=== PATIENT | male | born 1985 | race Caucasian/White ===

== ENCOUNTER → 2018-03-27 07:18 | Outpatient (CLI) | payer OTHER, SELFPAY ==
--- NOTE | 2018-03-27 07:22 | CT_ITS ---
STUDY: CT MAXILLOFACIAL SINUSES REASON FOR EXAM: Male, 32 years old. Nasal polyps. RADIATION DOSAGE (If Supplied By Facility): CTDIvol = ( 29.38 ) mGy, DLP = ( 620.92 ) mGycm TECHNIQUE: The patient was scanned in a multi detector CT scanner. High resolution axial imaging was performed without the administration of intravenous contrast material. Sagittal and coronal images were reconstructed. Individualized dose optimization techniques were used for this CT. COMPARISON: None. FINDINGS: FRONTAL SINUSES: There is complete opacification of the bilateral frontal nasal sinuses. ETHMOIDAL SINUSES: There is near complete opacification of bilateral ethmoidal air cells. MAXILLARY SINUSES: There is significant, lobular peripheral mucosal thickening/edema throughout both maxillary sinuses. SPHENOIDAL SINUSES: There is a small amount of multifocal soft tissue density marginating the sphenoid sinuses. Both ostiomeatal units are occluded in the composite secondary to soft tissue densities are previously discussed. There is rightward deviation of the bony nasal septum. There is mild attenuation of multiple ethmoidal sinus osseous septa. The nasal cavity appears occluded. There is no osseous expansion. The visualized bilateral orbital contents are normal. 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 Complete Occlusion of the bilateral ostiomeatal units. Somewhat globular and polypoid appearing soft tissue densities within the occluded nasal cavity would be consistent with the provided clinical history. No osseous expansion or destruction. Wall thickening and sclerosis of the maxillary sinus osseous margins consistent with chronic disease. Electronically Signed: Ketan Stephenson MD at 8:06 EDT , Service support ,
== END ==
PROVIDERS: Family Provider Family Medicine; PCP Family Medicine; Visit Provider Otolaryngology Otolaryngology/Facial Plastic Surgery
DX: J33.9 Nasal polyp, unspecified (principal)
CPT/HCPCS: 70486

== ENCOUNTER 2018-04-21 12:38 | Day surgery (SDC) | payer OTHER, SELFPAY ==
[2018-04-21 12:53] VITALS: BP 154/83; PULSE 81; RESP 14; TEMP 35.9; O2SAT 95; BMI 27.8
--- NOTE | 2018-04-21 13:52 | OP.PCM_ITS ---
Problem List (1) Chronic pansinusitis Status: Chronic Report of Operation Date of Procedure: 04/21/18 Pre-Operative Diagnosis: chronic pansinusitis Post-Operative Diagnosis: chronic pansinusitis Surgery/Procedure Performed:: 1. endoscopic maxillary antrostomy with tissue removal, right and left. 2. endoscopic frontal sinus exploration with tissue removal, right and left. 3. endoscopic total ethmoidectomy, right and left. 4. extensive excision nasal polyps. 5. stereotactic image guidance navigation Type of Anesthesia:: General Estimated Blood Loss (mL): 5cc Description of Procedure: on the day of the procedure, after appropriate informed consent was obtained, the patient was brought to the operating room and placed in supine position on the operating table. he was placed under general endotracheal anesthesia by the anesthesiologist. the endotracheal tube was secured, the eyes were lubricated. the image-guidance facial pads were placed. the bilateral nasal cavities were decongested with oxymetazoline-soaked pledgets. the zero degree endoscope was used to evaluate the nose. the right and left superior attachment of the middle turbinate and polyps were injected with lidocaine/epinephrine. the left nose was visualized with the endoscope. polyps were removed from the middle meatus using the microdebrider. the acclarent balloon sinuplasty kit was used to probe the frontal sinus lateral to the superior attachment of the middle turbinate. the balloon was advanced after transillumination was seen in the frontal area and inflated to 12atm and removed. contents were evacuated. an antrostomy and uncinectomy was performed with a combination of a shannan elevator and a blakesley. a back biter was used to widen the antrostomy and contents were removed. the ethmoid bulla was entered bluntly with a suction. further polyps were removed from the sphenoethmoidal recess with the microdebrider. a total ethmoidectomy was performed with a curette and an upgoing blakesley. this was taken superiorly to the skull base and laterally to the lamina. a stankewicz maneuver was performed and no laminar defect was seen. a mushroom punch was used to widen the natural sphenoid os and sphenoid contents were removed. endoscopic scizzors were used to remove the anterior/ inferior portion of the middle turbinate. pledgets were placed and hemostasis was achieved. a propel stent was placed in the prior meatus/ethmoid cavity. the right nose was visualized with the endoscope. polyps were removed from the middle meatus using the microdebrider. the acclarent balloon sinuplasty kit was used to probe the frontal sinus lateral to the superior attachment of the middle turbinate. the balloon was advanced after transillumination was seen in the frontal area and inflated to 12atm and removed. contents were evacuated. an antrostomy and uncinectomy was performed with a combination of a shannan elevator and a blakesley. a back biter was used to widen the antrostomy and contents were removed. the ethmoid bulla was entered bluntly with a suction. further polyps were removed from the sphenoethmoidal recess with the microdebrider. a total ethmoidectomy was performed with a curette and an upgoing blakesley. this was taken superiorly to the skull base and laterally to the lamina. a stankewicz maneuver was performed and no laminar defect was seen. a mushroom punch was used to widen the natural sphenoid os and sphenoid contents were removed. endoscopic scizzors were used to remove the anterior/ inferior portion of the middle turbinate. pledgets were placed and hemostasis was achieved. a propel stent was placed in the prior meatus/ethmoid cavity. the patient was awoken from anesthesia and transferred to the PACU in stable condition. Grafts/Implants Used: propel stents - Admit VTE Documentation VTE Mechan Device Prophylaxis: SCD's VTE Pharm Prophylaxis ordered?: No Reason prophylaxis not ordered:: Treatment Not Indicated
--- NOTE | 2018-04-21 13:55 | PCM.DC ---
- Discharge Diagnoses Current Active Problems: Current Active and Chronic Problems Chronic pansinusitis (Chronic) You will use the following diet at home:: No restrictions Discharge Activity: Return to Normal Activity Call your doctor if your incision/area has: Increased Pain/ Swelling Additional Dressing/Incision Instructions:: irrigate nose with nasal saline 5-6 times per day Allergies/Adverse Reactions: Allergies No Known Allergies Allergy (Verified 04/20/18 08:17) Medications to take at Discharge Amoxicillin [Amoxil] mg PO Q12H 04/20/18 Fluticasone/Salmeterol [Advair 250/50 Mcg Diskus] 1 puff INHALATION BID 04/20/18 Mirtazapine [Remeron] 15 mg PO QHS 04/20/18 Montelukast [Singulair] 10 mg PO DAILY 04/20/18 Prednisone 04/20/18 Primary Care Physician: Preston Mccoy MD [Primary Care Provider] - Please Follow Up With: Preston Somers MD When: 1 week
[2018-04-21] MEDS: Clindamycin 900 MG/50 ML BAG 75 MG IV (14:00)
[2018-04-21] MEDS: Oxymetazoline 0.05% 1 SPRAY SPRAY.BTL 15 SPRAY (14:48)
--- NOTE | 2018-04-21 15:00 | ETH_PTH ---
PATIENT: ALICE CARBALLO [place] [facility] [id number] AGE/SX: 32/M ROOM: RE04/21/[address]: Dr. Los Somers MD : 1985 BED: DIS: 04/21/2018 SPEC #: [id number] RECD: 04/22/18 09:41 STATUS: JOANN RENEE #: [id number] GELY: 04/21/18 15:[address]: Los Somers DEPT: SURGICAL PATHOLOGY RECD BY: Dmitry Armstrong ENTERED: 04/22/18 10:21 SP TYPE: ETH TISS OTHR DR: Dr. Preston Mccoy MD Tissues: A - Ethmoid sinus, NOS B - Ethmoid sinus, NOS Procedures: Decalcification bone/plaque Surgery Specimen Level IV HEADER OPERATION: Functional endoscopic sinus surgery PRE-OP DIAGNOSIS: Allergic rhinitis, chronic pansinusitis TISSUE SUBMITTED: A ? Right nasal sinus tissue, B ? Left nasal sinus tissue MICROSCOPIC DIAGNOSIS A. Right nasal sinus tissue: Fragments of respiratory mucosa with chronic inflammation and bone. B. Left nasal sinus tissue: Fragments of respiratory mucosa with chronic inflammation and bone. TATY:tucker 04/28/18 MICROSCOPIC DESCRIPTION Slides are reviewed. GROSS DESCRIPTION A - Received in fixative is one container labeled with the patient's name and designated right nasal sinus tissue. The specimen consists of multiple irregular fragments of glistening pink-ornelas soft tissue that in aggregate measure 6 x 3.5 x 0.2 cm. Several of the fragments contain adherent bony tissue. The entire specimen is submitted in three cassettes after decalcification. B - Received in fixative is one container labeled with the patient's name and designated left nasal sinus tissue. The specimen consists of multiple irregular fragments of glistening pink-ornelas soft tissue that in aggregate measure 7 x 3 x 0.2 cm. Several of the fragments contain adherent bony tissue. The entire specimen is submitted in three cassettes after decalcification. / AM:tucker 04/22/18 TC:3 CPT: 88540 x2, 10386 x2
[2018-04-21] MEDS: Ondansetron 4 MG/2 ML Vial (15:25)
[2018-04-21 15:35] VITALS: BP 145/95; BP 154/83; PULSE 91; RESP 18; TEMP 36.2; O2SAT 95
[2018-04-21 15:45] VITALS: BP 144/97; BP 154/83; PULSE 93; RESP 18; O2SAT 93
[2018-04-21 16:00] VITALS: BP 143/93; BP 154/83; PULSE 81; RESP 18; TEMP 36.5; O2SAT 96
[2018-04-21 16:30] VITALS: BP 154/83
[2018-04-21] MEDS: HYDROcodone Bitartrate/Apap 5/325 Tablet PO (16:42)
== END 2018-04-21 16:35 | disposition home or self-care (01) ==
LOC: SDC 12:39 → AC 12:40
PROVIDERS: Family Provider Family Medicine; PCP Family Medicine; Visit Provider Otolaryngology
PROC: (CPT 31237; principal; 2018-04-21 14:30)
DX: J32.4 Chronic pansinusitis (principal); J30.1 Allergic rhinitis due to pollen; J30.81 Allergic rhinitis due to animal (cat) (dog) hair and dander; K21.9 Gastro-esophageal reflux disease without esophagitis; Z79.2 Long term (current) use of antibiotics; Z79.51 Long term (current) use of inhaled steroids; Z79.52 Long term (current) use of systemic steroids; Z87.891 Personal history of nicotine dependence; Z79.899 Other long term (current) drug therapy
CPT/HCPCS: 31237; 31255; 31267; 31276; 88305; 88311; J7120; J2405

== ENCOUNTER 2019-11-18 23:34 | Emergency (ER) | payer OTHER, SELFPAY ==
[2019-11-18 23:35] VITALS: BP 162/79; PULSE 112; RESP 18; TEMP 36.7; O2SAT 96; BMI 22.7
--- NOTE | 2019-11-19 00:24 | ED.DCSUM_ITS ---
- ER Visit Summary Date of Service: 11/19/19 Chief Complaint: [Drug overdose] History of Present Illness: The patient is a 34 M [presents to the emergency department via EMS. EMS was called by patient's vleqxo-do-cyw who was at their home tonight. The patient's had surgery recently. Patient apparently displayed some odd behavior this evening and was not acting normally. Patient apparently denied to the family that he had done anything although he does have history of opiate abuse and addiction. Patient currently at [facility] and actually had a group session today. He admitted to the police officers that he did use heroin tonight. Patient admits to me that he snorted heroin tonight. He denies feeling suicidal or homicidal. Patient had no intentional overdose. He did not require any Narcan. Patient otherwise has no complaints. He has a primary care physician appointment coming up December 17 and also an appointment with psychiatrist on 09 December.] He denies alcohol use tonight. Physical Examination: [HEENT-PERRLA, EOMI. Cranial nerves II through XII grossly intact. TMs clear. Mucous membranes moist. No adenopathy. Cardiovascular-regular rate and rhythm without murmur or ectopy Lungs-clear to auscultation, chest wall stable without crepitus or subcu em physema Abdomen-normoactive bowel sounds, soft, nontender, no rebound or rigidity, no peritoneal signs. Extremities-intact ?4, normal range of motion, normal pulses, atraumatic] Test Results: [None indicated] Emergency Department Course and Treatment: [I discussed with patient options of having him speak with somebody from the counseling center however he does not feel like that is necessary. Patient's vkytyg-zz-xqv presented to the emergency department as well and he did admit to her that he did use heroin tonight. Yihcop-ov-ddz is a nurse and she found out recently that he was using prescription pain pills but did not know that he was using heroin. At this point I do not feel any further treatment or observation periods indicated. Patient is comfortable going home.] Treatment Plan: [Follow-up with primary care physician and counseling center. Follow-up with [facility]. Patient advised to discontinue drug use.] Disposition: [Discharged home in stable condition] Impression: [Illicit drug use/opiates] This note was generated with [employer] software. It may contain incorrect words, spelling, and punctuation that were not noted in review of the chart prior to signing ED Disposition - Plan for ED Patient: Referrals: Preston Mccoy MD [Primary Care Provider] -
--- NOTE | 2019-11-19 00:31 | ED.DEP ---
ED Disposition - Plan for ED Patient: Instructions: Drug Abuse, Opiate Abuse Referrals: Preston Mccoy MD [Primary Care Provider] - 5-7 Days
--- NOTE | 2019-11-19 00:54 | ED.RN ---
PATIENT REPEATLY ASKED IF HER OVERDOSED A SI ATTEMPT. PATIENT DENIES ANY SI OR HI THOUGHTS, HE TOOK TOO MUCH MEDICATION AN HERION TONIGHT TO GET HIGH. FAMILY AGREES. FAMILY AND PATIENT MADE AWARE IF THINGS CHANGE TO PLEASE SEEK MEDICAL TREATMENT
[2019-11-19 00:55] VITALS: PULSE 86; RESP 16; O2SAT 98
== END 2019-11-19 00:56 | disposition home or self-care (01) ==
PROVIDERS: Emergency Provider Emergency Medicine; Family Provider Family Medicine; PCP Family Medicine
DX: F11.20 Opioid dependence, uncomplicated (principal)
CPT/HCPCS: 99284

== ENCOUNTER 2019-12-14 18:58 | Emergency (ER) | payer OTHER, SELFPAY ==
[2019-12-14 18:59] VITALS: BP 156/112; PULSE 98; RESP 16; TEMP 36.8; O2SAT 95; BMI 23.3
--- NOTE | 2019-12-14 19:30 | ED.VISSUMM ---
- ER Visit Summary Date of Service: 12/14/19 Chief Complaint: Pain and paresthesias of the right upper extremity History of Present Illness: The patient is a 34 M who presents with pain and paresthesias of his right upper extremity that began today. Patient states the pain starts in his right scapular area and radiates down his right upper extremity to his hand and fingers. Patient admits to some numbness and tingling in his right upper extremity. Patient describes the pain as burning. Patient states nothing makes it better and nothing makes it worse. Patient denies any trauma or injury. Patient also admits to some mild discoloration of his right upper extremity. Physical Examination: Vital signs are stable. Patient is afebrile. Patient is in no acute distress. Oral mucosa is pink and moist. Neck is supple. Trachea is midline. There is no JVD or lymphadenopathy. There is some mild right cervical paraspinal tenderness. There is also tenderness over the right trapezius and parascapular muscles. Heart was regular rate and rhythm. Lungs are clear and equal bilaterally. Abdomen is soft and nontender. Cranial nerves II through XII are intact. Strength is 5/5 bilaterally upper extremities. There are no sensory deficits noted. Radial pulses are equal bilaterally. There is no pulse deficit when the arm is abducted and externally rotated however, the patient states the paresthesias get worse with this movement. Emergency Department Course and Treatment: Patient was advised that this may be thoracic outlet syndrome causing some pinching on his nerves to his upper extremity. I do not feel imaging is warranted at this time. Patient was given a prescription for Naprosyn. Patient was instructed to follow-up with his primary care physician in 3 to 5 days. Patient understood and was agreeable with the plan. All questions were answered. Disposition: Discharge home Impression: Right upper extremity paresthesias This note was generated with [employer] dictation software. It may contain incorrect words, spelling, and punctuation that were not noted in review of the chart prior to signing ED Disposition - Plan for ED Patient: Disposition: Home or Assisted Living Diagnosis: Paresthesia of right upper extremity Instructions: Paraesthesias Prescriptions: Naproxen [Naprosyn] 500 mg PO BID PRN #20 tab Prescription Printed Referrals: Preston Mccoy MD [Primary Care Provider] - 5-7 Days
--- NOTE | 2019-12-14 20:11 | ED.RN ---
THIS RN WENT TO D/C PT. PER PT , I DON'T WANT TO LEAVE WITHOUT A BLOOD TEST FOR BLOOD CLOT, I DO NOT FEEL COMFORTABLE TAKING HIM HOME. PLEASE TELL THE DOCTOR TO DO SOMETHING. THIS RN SPOKE WITH DR. WELLINGTON AND INFORMED HIM OF PT REQUEST. PT AWAITING LAB RESULTS AT THIS TIME.
[2019-12-14 20:35] LABS: D-Dimer Quantitative (DVT/PE) 0.64 FEU/ug/m (0.27-0.49)
[2019-12-14 21:09] VITALS: BP 146/107; PULSE 80; RESP 16; O2SAT 98
== END 2019-12-14 21:10 | disposition home or self-care (01) ==
PROVIDERS: Emergency Provider Emergency Medicine; Family Provider Family Medicine; PCP Family Medicine
DX: R20.2 Paresthesia of skin (principal); J45.909 Unspecified asthma, uncomplicated; F17.220 Nicotine dependence, chewing tobacco, uncomplicated; Z79.51 Long term (current) use of inhaled steroids
CPT/HCPCS: 36415; 85379; 99282

== ENCOUNTER → 2019-12-15 14:00 | Outpatient (CLI) | payer OTHER, SELFPAY ==
[2019-12-14 18:59] VITALS: BMI 23.3
--- NOTE | 2019-12-15 14:07 | VDUE_ITS ---
Reason For Study: elevated D-dimer (0.64) Right Proximal Left Proximal Right jugular vein is spontaneous, widely Left subclavian vein is spontaneous, widely patent, phasic, with no intraluminal patent, phasic, with no intraluminal echogenicity noted. echogenicity noted. Right subclavian vein is compressible and patent with roulleaux flow noted in vessel. Right Lower Arm Right radial vein is compressible. Right ulnar vein is compressible. Right Arm Right axillary vein is spontaneous, patent, phasic, competent, compressible and demonstrates augmentation. Right brachial vein is compressible. Right cephalic vein is compressible. Right basilic vein is compressible. Interpretation Summary Deep veins of the right upper extremity are patent and compressible segmentally. There is no evidence of deep vein thrombosis. The superficial veins in the right upper extremity, the basilic and cephalic veins, are patent and compressible. There is no evidence of right upper extremity superficial thrombophlebitis involving the veins imaged. Rouleaux flow is noted in the right subclavian vein. Ordering Physician: Beny Staley Referring Physician: Los Mccoy Performed By: Benita Sampson, [place], RVT ?
== END ==
PROVIDERS: Family Provider Family Medicine; PCP Family Medicine; Referring Provider Emergency Medicine; Visit Provider Emergency Medicine
DX: R79.89 Other specified abnormal findings of blood chemistry (principal)
CPT/HCPCS: 93971

== ENCOUNTER 2019-12-17 07:23 | Emergency (ER) | payer OTHER, SELFPAY ==
[2019-12-17 07:24] VITALS: BP 147/85; PULSE 107; RESP 17; TEMP 36.6; O2SAT 98; BMI 24.0
--- NOTE | 2019-12-17 07:58 | RAD_ITS ---
STUDY: X-RAY - CERVICAL SPINE REASON FOR EXAM: Male, 34 years old. Patient reports increased pain and edema in right arm and hand TECHNIQUE: 6 view(s) of the cervical spine were obtained including flexion and extension views and oblique views.. COMPARISON: None FINDINGS: Normal anterior atlantoaxial articulation. Normal odontoid process. There is straightening of the normal cervical lordosis. Mild degree of the anterior spondylosis and disc space narrowing at the C5-C6 level. Normal visualized intervertebral neuroforamina. The soft tissue structures are unremarkable. RAD/Cerv Spine Obl/Flex/Ext Comp IMPRESSION: Mild degree of disc space narrowing and spondylosis at the C5-C6 level. Electronically Signed: Paulo Grigsby, at 8:56 EST , Service support ,
--- NOTE | 2019-12-17 07:58 | RAD_ITS ---
STUDY: X-RAY CHEST REASON FOR EXAM: Male, 34 years old. Patient reports increased pain and edema in right arm and hand TECHNIQUE: PA and lateral views of the chest. COMPARISON: None. FINDINGS: The lungs are clear and expanded. Calcified granulomatous disease. There is no demonstrated pleural abnormality. Normal size heart. Normal mediastinum and sukhdev. Normal visualized pulmonary arteries. Normal visualized aortic arch and descending thoracic aorta. There are mild degenerative changes of the visualized thoracic spine. Normal visualized ribs, clavicles, and shoulders. There is no demonstrated abnormality of the visualized soft tissue structures of the upper abdomen. RAD/Chest PA and Lateral IMPRESSION: No acute abnormality is seen. Electronically Signed: Paulo Grigsby, at 8:55 EST , Service support ,
--- NOTE | 2019-12-17 08:02 | ED.DCSUM_ITS ---
- ER Visit Summary Date of Service: 12/17/19 Chief Complaint: Right arm pain and swelling History of Present Illness: The patient is a 34 M who presents with worsening right arm pain and swelling. Patient states this began 5 days ago. Patient was seen here 3 days ago and elevated d-dimer at that time. Patient followed up with an outpatient venous duplex of his right upper extremity which did not show any DVT. Patient states that he was told that he had slow blood flow in his right arm. Patient admits to some paresthesias in his entire right upper extremity. Patient denies any weakness. Patient describes the pain as dull, aching, and burning. Patient states the pain is worse when he abducts and externally rotates his right shoulder. Patient states he has pain in his right scapular area as well. Physical Examination: Vital signs are stable. Patient is afebrile. Patient is in no acute distress. Oral mucosa is pink and moist. Neck is supple. Trachea is midline. There is no JVD. Heart was regular rate and rhythm. Lungs are clear and equal bilaterally. Radial pulses are equal bilaterally. Capillary refill is less than 2 seconds in all digits. There is some edema of the right upper extremity. Sensation was intact to light touch in the radial, median, and ulnar areas. Patient still had a palpable radial pulse with abduction and external rotation of the right shoulder. There is also some mild tenderness over the right cervical paraspinal area and trapezius muscle area. Test Results: CBC and basic metabolic profile were obtained and were within normal limits. Total CK was normal at 48. PA lateral chest x-ray was obtained. There is no acute cardiopulmonary process. This was interpreted by the radiologist and myself. X-rays of the cervical spine with obliques and flexion- extension views were obtained. There is some mild disc space narrowing at C5-C6 but there is no neuroforaminal stenosis. CTA of the chest was obtained for possible thoracic outlet syndrome. There is no compression of the subclavian artery or vein. There is no pulmonary embolism. Emergency Department Course and Treatment: Patient was instructed to continue using ice to his right shoulder area. Patient was instructed to continue using his Naprosyn. Patient was given a prescription for Flexeril to take at bedtime. Patient was instructed to follow-up with his primary care physician in 3 to 5 d ays for further evaluation. Patient understood and was agreeable with the plan. All questions were answered. Disposition: Discharge home Impression: 1. Right arm paresthesias 2. Probable thoracic outlet syndrome This note was generated with [employer] dictation software. It may contain incorrect words, spelling, and punctuation that were not noted in review of the chart prior to signing ED Disposition - Plan for ED Patient: Disposition: Home or Assisted Living Diagnosis: Thoracic outlet syndrome Instructions: Paraesthesias Referrals: Preston Mccoy MD [Primary Care Provider] - 3-5 Days
[2019-12-17 08:19] LABS: Absolute Lymphocyte Count 2.01 X10^3/uL (0.83-4.51); Absolute Neutrophil Count 7.1 X10^3/uL (2.0-7.7); Basophil# 0.06 X10^3/uL; Basophil% 0.6 % (0-1); Eosinophil# 0.36 X10^3/uL; Eosinophils% 3.3 % (0-5); Hematocrit 45.5 % (40-54); Hemoglobin 14.9 g/dL (13.0-16.5); Lymphocyte # 2.01 X10^3/ul (4.0); Lymphocyte % 18.4 % (19-41); Mean Corp Hgb Conc 32.7 g/dL (32-36); Mean Corpuscular Hgb 30.2 pg (27.0-32.0); Mean Corpuscular Volume 92.3 fL (80-94); Mean Platelet Vol. 9.1 fl (6.2-12.0); Monocyte# 1.24 X10^3/uL; Monocyte% 11.4 % (0-10); NRBC Flagged by Analyzer 0 % (0-5); Neutrophil # 7.14 X10^3/uL (2.7-7.7); Neutrophil % 65.5 % (47-70); Platelet Count 287 K/mm3 (150-450); RBC Distribution Width CV 12.3 % (11.6-14.6); RBC Distribution Width SD 41.8 fl (35.1-43.9); Red Blood Count 4.93 M/mm3 (4.6-6.2); White Blood Count 10.9 K/mm3 (4.4-11.0)
[2019-12-17] MEDS: Ketorolac 30 MG/ML Syringe IV (08:25)
[2019-12-17 08:42] LABS: Anion Gap 0 (5-15); BUN 15 mg/dL (7-18); CPK Total, Creatine Kinase 48 U/L (39-308); Calcium,Total 8.7 mg/dL (8.5-10.1); Chloride 108 mmol/L (98-107); Creatinine, Serum 0.88 mg/dL (0.70-1.30); EST Glomerular Filtration Rate 104 mL/min (>60); Est Glom Filt Rate - Afr Amer 126 mL/min (>60); Estimated Creatinine Clearance 110.58 ml/min; Glucose 83 mg/dL (74-106); Potassium 4.3 mmol/L (3.5-5.1); Sodium Level 140 mmol/L (136-145)
--- NOTE | 2019-12-17 09:15 | CT_ITS ---
STUDY: CTA CHEST REASON FOR EXAM: Male, 34 years old. Right arm pain and edema x 5 days, ? Thoracic outlet syndrome, negative for DVT. Hx asthma. Thoracic outlet syndrome protocol. RADIATION DOSAGE (If Supplied By Facility): CTDIvol = ( 8.10 ) mGy, DLP = ( 655.70 ) mGycm TECHNIQUE: The examination was performed with the intravenous administration of 150mL Isovue 300 (total injected). Post-processing of the angiographic images was performed, with multiplanar reformation and 3D reconstruction. Individualized dose optimization techniques were used for this CT. COMPARISON: None. FINDINGS: Normal enhancement of the main pulmonary artery and right and left pulmonary arteries. Normal enhancement of the bilateral peripheral pulmonary arteries. There is no demonstrated pulmonary embolism. Normal thoracic aorta and visualized great vessels. There is no demonstrated aortic dissection. Normal heart and pericardium. Normal mediastinum. Normal hilar regions. Normal visualized trachea and bronchi. The lungs are well expanded. Normal pulmonary parenchyma. Normal pleura. Normal chest wall structures. Normal osseous structures. Normal visualized upper abdomen. CT/CTA Chest W/WO Contrast IMPRESSION: Normal CTA chest examination, without a demonstrated pulmonary embolism or arterial dissection. Electronically Signed: Paulo Grigsby, at 10:06 EST , Service support ,
[2019-12-17 11:49] VITALS: BP 145/81; PULSE 81; RESP 12; O2SAT 97
== END 2019-12-17 11:51 | disposition home or self-care (01) ==
PROVIDERS: Emergency Provider Emergency Medicine; PCP Family Medicine
DX: R20.2 Paresthesia of skin (principal); K21.9 Gastro-esophageal reflux disease without esophagitis; Z79.899 Other long term (current) drug therapy
CPT/HCPCS: 71046; 71275; 72052; 80048; 82550; 85025; 96374; 99283; Q9967; A4216

== ENCOUNTER 2019-12-17 16:01 | Emergency (ER) | payer OTHER, SELFPAY ==
[2019-12-17 07:24] VITALS: BMI 24.0
[2019-12-17 16:02] VITALS: BP 148/88; PULSE 106; RESP 16; TEMP 36.3; O2SAT 98; BMI 23.9
[2019-12-17 17:01] LABS: International Normalized Ratio 1.1; Prothrombin Time (Protime)PT. 13.5 SECONDS (11.7-14.9)
[2019-12-17 17:02] LABS: Partial Thromboplast Time 26.9 Seconds (24.1-36.2)
--- NOTE | 2019-12-17 18:16 | ED.DEP ---
ED Disposition - Plan for ED Patient: Instructions: Understanding Deep Vein Thrombosis Prescriptions: Apixaban [Eliquis] 5 mg PO BID #74 tablet Referrals: Preston Mccoy MD [Primary Care Provider] - Randy Arce MD [STAFF PHYSICIAN] - Enzo Toscano MD [NON-STAFF] -
--- NOTE | 2019-12-17 18:25 | ED.VISSUMM ---
- ER Visit Summary Date of Service: 12/17/19 Chief Complaint: Right upper extremity blood clot History of Present Illness: The patient is a 34 M presenting with swelling to his right arm. This has been ongoing for the past 4 days. He was seen in the ED on Friday night and had an outpatient ultrasound ordered. This was performed on Friday and showed no evidence of DVT. Patient continued to complain of increasing pain and swelling in the right arm. He returned to the ED this morning and had a work-up including blood work and CTA of his chest which was negative. He followed up with his primary care physician today after the ED visit. Another ultrasound was ordered and performed today. This ultrasound of his right upper extremity showed occlusive or near occlusive thrombus within the right subclavian, axillary and basilic veins. Brachial and cephalic veins are patent. Bilateral jugular veins are patent. Regional soft tissues are unremarkable. Patient denies chest pain or shortness of breath. Denies weakness. He has a history of heroin abuse. Denies history of IV drug use. He has been sober for 30 days. Physical Examination: Vitals are stable. Patient is afebrile. Alert no acute distress. HEENT exam is unremarkable. Neck is supple. Lungs are clear and equal bilaterally. Heart is regular rate and rhythm. Abdomen is soft nontender nondistended. Extremities right upper extremity swelling with tenderness right arm. Normal radial pulses. Cap refill less than 2 seconds. Normal sensation. Skin is warm and dry. No focal neurologic deficit. Normal strength. Remainder of exam is unremarkable. Emergency Department Course and Treatment: Blood work from earlier today was unremarkable. INR was 1.1. Ultrasound was reviewed with Dr. Arce, vascular surgery and Dr. Toscano, hematology. Recommend Eliquis and outpatient follow-up. Patient will follow-up with Dr. Arce and Dr. Toscano. He is given Eliquis and prescription for Eliquis. He is advised return to ED for worsening complaints. Disposition: Discharge home Impression: Right upper extremity DVT This note was generated with [employer] dictation software. It may contain incorrect words, spelling, and punctuation that were not noted in review of the chart prior to signing ED Disposition - Plan for ED Patient: Disposition: Home or Assisted Living Instructions: Understanding Deep Vein Thrombosis Prescriptions: Apixaban [Eliquis] 5 mg PO BID #74 tab Prescription Printed Referrals: Randy Arce MD [STAFF PHYSICIAN] - Preston Mccoy MD [Primary Care Provider] - Enzo Toscano MD [NON-STAFF] -
[2019-12-17] MEDS: APIXABAN 5 MG TABLET 10 MG PO (18:45)
== END 2019-12-17 18:46 | disposition home or self-care (01) ==
PROVIDERS: Emergency Provider Emergency Medicine; PCP Family Medicine
DX: I82.621 Acute embolism and thrombosis of deep veins of right upper extremity (principal)
CPT/HCPCS: 85610; 85730; 99284; A4216

== ENCOUNTER 2020-01-09 01:05 | Emergency (ER) | payer OTHER, SELFPAY ==
[2020-01-09 01:06] VITALS: BP 157/101; PULSE 119; RESP 10; TEMP 37.1; O2SAT 84; BMI 26.2
[2020-01-09 01:08] VITALS: O2SAT 99
--- NOTE | 2020-01-09 01:21 | CT_ITS ---
STUDY: CTA CHEST REASON FOR EXAM: Male, 34 years old. FALL WHILE IN SHOWER, FOUND WITH ALTERED LOC PER , NOT ACTING RIGHT, C/O NEWMAN, WEAKNESS, CP, THORACIC OUTLET SYNDROME SX 1.5 WEEKS AGO, DYSPNEA, COUGH RADIATION DOSAGE (If Supplied By Facility): CTDIvol = ( 13.86 ) mGy, DLP = ( 467.43 ) mGycm TECHNIQUE: The examination was performed with the intravenous administration of IV 100mL Isovue-370. Post-processing of the angiographic images was performed, with multiplanar reformation and 3D reconstruction. Individualized dose optimization techniques were used for this CT. COMPARISON: 12/17/2019 FINDINGS: Normal enhancement of the main pulmonary artery and right and left pulmonary arteries. Normal enhancement of the bilateral peripheral pulmonary arteries. There is no demonstrated pulmonary embolism. Normal thoracic aorta and visualized great vessels. There is no demonstrated aortic dissection. Normal heart and pericardium. Normal mediastinum. Normal hilar regions. Normal visualized trachea and bronchi. Evolving scattered areas of bilateral alveolitis. Small right pleural effusion. Normal chest wall structures. Normal osseous structures. Normal visualized upper abdomen. CT/CTA Chest W/WO Contrast IMPRESSION: No pulmonary embolus or aortic dissection. Evolving scattered areas of bilateral alveolitis. Small right pleural effusion. Electronically Signed: Vern Faye MD at 2:25 EST Tel , Service support ,
--- NOTE | 2020-01-09 01:23 | CT_ITS ---
STUDY: CT BRAIN WITHOUT CONTRAST REASON FOR EXAM: Male, 34 years old patient found with altered level of consciousness after falling in the shower. Patient has headache and weakness. Patient had thoracic outlet syndrome surgery one and one-half weeks ago. FALL WHILE IN SHOWER, FOUND WITH ALTERED LOC PER , NOT ACTING RIGHT, C/O NEWMAN, WEAKNESS, CP, THORACIC OUTLET SYNDROME SX 1.5 WEEKS AGO RADIATION DOSAGE (If Supplied By Facility): CTDIvol = ( 44.99 ) mGy, DLP = ( 829.85 ) mGycm TECHNIQUE: Transaxial CT imaging of the brain was performed without administration of intravenous contrast material. Multiplanar reformations are submitted for interpretation. Individualized dose optimization techniques were used for this CT. COMPARISON: No relevant priors. FINDINGS: Normal soft tissue structures. Normal calvarium. Normal size ventricles and extra-axial spaces for the patient''s age. Normal white matter tracts of the cerebral hemispheres. Normal basal ganglia and thalami. Normal brainstem. Normal cerebellum. There is no intracranial hemorrhage. There are no findings of an acute ischemic infarction. Patient has had extensive surgery including resection of the ostiomeatal complexes and partial ethmoidectomies. There is residual mucosal thickening within the maxillary sinuses. CT/Brain/Head without Contrast IMPRESSION: No CT evidence of acute intracranial hemorrhage. Electronically Signed: Hortencia Cruz MD at 2:46 EST , Service support ,
--- NOTE | 2020-01-09 01:23 | ED.VISSUMM ---
- ER Visit Summary Date of Service: 01/09/20 Chief Complaint: Fall and altered mental status History of Present Illness: The patient is a 34 M who presents with altered mental status and fall that occurred tonight. Patient states he went and took a shower tonight. Patient states he fell while he was in the shower. found him with an altered mental status. Patient denies any syncopal episode. Patient did have a recent surgery for thoracic outlet syndrome. Patient states he has pain over the incision and into his back. Patient also admits to some pain in his chest. Patient also admits to headache and weakness. Physical Examination: Vital signs are stable except for mildly elevated blood pressure of 157/101, a mild tachycardia of 119, and a respiratory rate of 10. Pulse oximeter is 99% on 2 L nasal cannula. Pupils are equal, round, and reactive to light bilaterally. Extraocular muscles are intact. Oral mucosa is pink and somewhat dry. Neck is supple. Trachea is midline. There is no JVD. Heart was regular and tachycardic. Lungs were diminished bilaterally but slightly worse on the right. There is adequate respiratory effort. Abdomen is soft. Bowel sounds are normal. There is no tenderness. Cranial nerves II through XII are intact. There are no focal motor or sensory deficits noted. Patient does fall asleep easily on examination but awakens to verbal stimuli. Extremities are intact. There is no calf tenderness or edema. Test Results: CBC shows a mild leukocytosis of 12.9 and mild thrombocytosis of 500. Comprehensive metabolic profile was within normal limits. CT scan of the brain was obtained and was negative. CTA of the chest was obtained. There is no evidence of pulmonary embolism or aortic dissection. Urinalysis was within normal limits. Urine tox screen was positive for opiates and benzodiazepines. Emergency Department Course and Treatment: Patient was given IV fluids. Patient was more awake and alert on reevaluation. Patient was instructed to drink plenty of fluids. Patient was instructed to follow-up with his primary care physician and surgeon in 3 to 5 days. Patient and family understood and were agreeable with the plan. All questions were answered. Disposition: Discharge home Impression: 1. Syncope 2. Dehydration This note was generated with [employer] software. It may contain incorrect words, spelling, and punctuation that were not noted in review of the chart prior to signing ED Disposition - Plan for ED Patient: Disposition: Home or Assisted Living Diagnosis: Syncope, Dehydration Instructions: DEHYDRATION (6y-Adult), SYNCOPE, Unk Cause Referrals: Preston Mccoy MD [Primary Care Provider] - 3-5 Days
[2020-01-09] MEDS: 0.9% Normal Saline 1,000 ML 1000 ML IV (01:32)
[2020-01-09 01:41] LABS: Absolute Lymphocyte Count 3.24 X10^3/uL (0.83-4.51); Absolute Neutrophil Count 7.6 X10^3/uL (2.0-7.7); Basophil# 0.06 X10^3/uL; Basophil% 0.5 % (0-1); Eosinophil# 0.57 X10^3/uL; Eosinophils% 4.4 % (0-5); Hematocrit 41.1 % (40-54); Hemoglobin 13.7 g/dL (13.0-16.5); Lymphocyte # 3.24 X10^3/ul (4.0); Lymphocyte % 25.2 % (19-41); Mean Corp Hgb Conc 33.3 g/dL (32-36); Mean Corpuscular Hgb 30.5 pg (27.0-32.0); Mean Corpuscular Volume 91.5 fL (80-94); Mean Platelet Vol. 8.8 fl (6.2-12.0); Monocyte# 1.24 X10^3/uL; Monocyte% 9.6 % (0-10); NRBC Flagged by Analyzer 0 % (0-5); Neutrophil # 7.56 X10^3/uL (2.7-7.7); Neutrophil % 58.7 % (47-70); Platelet Count 500 K/mm3 (150-450); Red Blood Count 4.49 M/mm3 (4.6-6.2); White Blood Count 12.9 K/mm3 (4.4-11.0)
[2020-01-09 01:57] LABS: ALB/GLOB Ratio 0.9 RATIO (0.9-2.4); AST(SGOT) 27 U/L (15-37); Alanine Aminotransfer ALT/SGPT 56 U/L (16-61); Albumin, Serum 3.7 g/dL (3.2-5.0); Alkaline Phosphatase 77 U/L (45-117); Anion Gap 3 (5-15); BUN 16 mg/dL (7-18); BUN/Creat Ratio 14.8 RATIO (10-20); Chloride 108 mmol/L (98-107); Creatinine, Serum 1.08 mg/dL (0.70-1.30); EST Glomerular Filtration Rate 83 mL/min (>60); Est Glom Filt Rate - Afr Amer 100 mL/min (>60); Estimated Creatinine Clearance 90.11 ml/min; Globulin 3.9 g/dL (2.2-4.2); Glucose 110 mg/dL (74-106); Potassium 4.7 mmol/L (3.5-5.1); Protein, Total 7.6 g/dL (6.4-8.2); Sodium Level 137 mmol/L (136-145)
[2020-01-09 03:05] VITALS: BP 131/79; PULSE 99; RESP 12; O2SAT 95
[2020-01-09 04:37] LABS: Bacteria 0 SEEN /hpf (None Seen); Red Blood Cells-Urine 0 SEEN /hpf (0-5); White Blood Cells 0 SEEN /hpf (0-5)
[2020-01-09 04:42] LABS: Color, Urine Straw (Yellow); Glucose, Dipstick Normal (Normal); Ketone-Dipstick Negative (Negative); Leukocyte Esterase-Dipstick Negative /ul (Negative); Nitrite-Dipstick Negative (Negative); Occult Blood-Urine Negative /ul (Negative); Protein-Dipstick Negative (Negative); Specific Gravity, Urine 1.015 (1.002-1.030); Urine Bilirubin Dipstick Negative (Negative); Urine Clarity Clear (Clear); Urine Urobilinogen Normal (Normal)
[2020-01-09 04:48] LABS: Mucous, Urine RARE /hpf (<or=2+); Squamous Epithelial Cells - UA 0-5 SEEN /hpf (0-5)
[2020-01-09 04:57] LABS: Amphetamine Urine VISTA NEGATIVE (<1000 ng/mL); Barbiturate Urine VISTA NEGATIVE (< 200 ng/mL); Benzodiazepine Urine VISTA POSITIVE (< 200 ng/mL); Cocaine Urine VISTA NEGATIVE (< 300 ng/mL); Ecstacy Urine VISTA NEGATIVE (< 500 ng/mL); Methadone Urine VISTA NEGATIVE (< 300 ng/mL); PCP Urine VISTA NEGATIVE (< 25 ng/mL); THC Urine VISTA NEGATIVE (< 50 ng/mL); Vista UDS pH Range 5
[2020-01-09 05:07] VITALS: BP 126/64; PULSE 78; RESP 14; O2SAT 95
== END 2020-01-09 05:08 | disposition home or self-care (01) ==
PROVIDERS: Emergency Provider Emergency Medicine; PCP Family Medicine
DX: R55 Syncope and collapse (principal); E86.0 Dehydration; Z86.718 Personal history of other venous thrombosis and embolism; Z79.02 Long term (current) use of antithrombotics/antiplatelets
CPT/HCPCS: 70450; 71275; 80053; 80307; 81001; 85025; 96360; 96361; 99285; J7030; Q9967; A4216

== ENCOUNTER → 2020-01-26 13:58 | Outpatient (CLI) | payer OTHER, SELFPAY ==
[2020-01-09 01:06] VITALS: BMI 26.2
--- NOTE | 2020-01-26 14:02 | VDUE_ITS ---
Reason For Study: Thoracic outlet syndrome Right Proximal Right jugular vein is spontaneous, widely patent, phasic, with no intraluminal echogenicity noted. Right subclavian vein is spontaneous, widley patent, continuous flow, with no intraluminal echogenicity noted. Right Lower Arm Right radial vein is compressible. Right ulnar vein is compressible. Right Arm Right axillary vein is spontaneous, patent, phasic, competent, compressible and demonstrates augmentation. Right brachial vein is compressible. Right cephalic vein is compressible. Right basilic vein is compressible. Patient Safety Prelim to Yazmin. Interpretation Summary 1. right arm no DVT. Ordering Physician: Randy Arce Referring Physician: Los Mccoy Performed By: Mary Moss RVT ?
== END ==
PROVIDERS: PCP Family Medicine; Referring Provider Surgery Vascular Surgery; Visit Provider Surgery Vascular Surgery
DX: G54.0 Brachial plexus disorders (principal); I26.99 Other pulmonary embolism without acute cor pulmonale; I82.90 Acute embolism and thrombosis of unspecified vein
CPT/HCPCS: 93971

== ENCOUNTER → 2020-11-03 13:37 | Outpatient (CLI) | payer OTHER, SELFPAY ==
--- NOTE | 2020-11-03 13:42 | VDUE_ITS ---
Reason For Study: Pain right upper extremity Right Proximal Right jugular vein is spontaneous, widely patent, continuous flow, with no intraluminal echogenicity noted. Right subclavian vein is noncompressible with bright intraluminal echoes consistent with chroic DVT. Vein is small is size as compared to previous study. Right Lower Arm Right radial vein is compressible. Right ulnar vein is compressible. Right Arm Right axillary vein is noncompressisble with minimal flow. Bright intraluminal echoes noted consistent with chronic DVT. Vein is small in size as compared to previous study. Right brachial vein is compressible. Right cephalic vein is compressible. Right basilic vein is compressible. Patient Safety Prelim to Yazmin's office staff. Interpretation Summary Chronic DVT right subclavian and axillary vein. Ordering Physician: Randy Arce Referring Physician: Los Mccoy Performed By: Mary Moss RVT and Student ?
== END ==
PROVIDERS: PCP Family Medicine; Referring Provider Surgery Vascular Surgery; Visit Provider Surgery Vascular Surgery
DX: R22.31 Localized swelling, mass and lump, right upper limb (principal); K21.9 Gastro-esophageal reflux disease without esophagitis; J45.909 Unspecified asthma, uncomplicated; I10 Essential (primary) hypertension; G54.0 Brachial plexus disorders; I26.99 Other pulmonary embolism without acute cor pulmonale; I82.90 Acute embolism and thrombosis of unspecified vein
CPT/HCPCS: 93971